=== PATIENT | female | born 1980 | race Caucasian/White ===

== ENCOUNTER 2016-09-15 20:56 | Inpatient (IN) | payer OTHER ==
[2016-09-16] MEDS ORDERED: ONDANSETRON 4 MG TAB.RAPDIS PO ONE (00:04)
--- NOTE | 2016-09-16 00:06 | ER Document Report ---
ED Medical Screen (RME) - General Chief Complaint: Vomiting Stated Complaint: VOMITING BLOOD Mode of Arrival: Ambulatory Information source: Patient Notes: Patient presents to the emergency department with reports that she is vomiting blood and having bloody stool. She reports both started today. Denies past medical history of GI bleed. Denies trauma. Reports history of renal cancer 7 years ago. She reports she was on the treadmill and had one about 1-1/2 miles when she became nauseated. After that she vomited noted blood she reports it looks like jelly. TRAVEL OUTSIDE OF THE [place] IN LAST 30 DAYS: No - Related Data Allergies/Adverse Reactions: No Known Allergies Allergy (Unverified 09/15/16 21:46) Past Medical History Renal/ Medical History: Denies: Hx Peritoneal Dialysis Physical Exam - Vital signs Vitals: Temp Pulse Resp BP Pulse Ox 99.0 F 116 H 18 128/82 H 98 09/15/16 21:46 09/15/16 21:46 09/15/16 21:46 09/15/16 21:46 09/15/16 21:46 Course - Vital Signs Vital signs: Temp Pulse Resp BP Pulse Ox 99.0 F 116 H 18 128/82 H 98 09/15/16 21:46 09/15/16 21:46 09/15/16 21:46 09/15/16 21:46 09/15/16 21:46
[2016-09-16 01:09] LABS: ABSOLUTE BASOPHILS # (AUTO) 0.1 10^3/uL (0.0-0.2); ABSOLUTE EOSINOPHILS # (AUTO) 0.1 10^3/uL (0.0-0.6); ABSOLUTE LYMPHOCYTES (AUTO) 0.9 10^3/uL (0.5-4.7); ABSOLUTE MONOCYTES (AUTO) 0.6 10^3/uL (0.1-1.4); BASOPHILS % (AUTO) 0.6 % (0-2); EOSINOPHILS % (AUTO) 0.8 % (0-6); HEMATOCRIT 32.6 % (36.0-47.0); HGB HCT DIFFERENCE 0.4; LYMPHOCYTES % (AUTO) 7.2 % (13-45); MEAN CORPUSCULAR HEMOGLOBIN 28.7 pg (27.0-33.4); MEAN CORPUSCULAR HGB CONC 33.6 g/dL (32.0-36.0); MEAN CORPUSCULAR VOLUME 85 fl (80-97); RED BLOOD COUNT 3.82 10^6/uL (3.72-5.28); RED CELL DISTRIBUTION WIDTH 14.7 % (11.5-14.0); SEGMENTED NEUTROPHILS % (AUTO) 86.4 % (42-78); WHITE BLOOD COUNT 12.7 10^3/uL (4.0-10.5)
[2016-09-16 01:21] LABS: APPEARANCE,URINE CLEAR; BILIRUBIN,URINE NEGATIVE (NEGATIVE); GLUCOSE, URINE NEGATIVE (NEGATIVE); KETONES,URINE TRACE mg/dL (NEGATIVE); LEUKOCYTE ESTERASE,URINE NEGATIVE (NEGATIVE); NITRITE,URINE NEGATIVE (NEGATIVE); PROTEIN,URINE NEGATIVE (NEGATIVE); URINE SPECIFIC GRAVITY 1.016; UROBILINOGEN,URINE NEGATIVE mg/dL (<2.0)
[2016-09-16 01:27] LABS: ALANINE AMINOTRANSFERASE 35 U/L (9-52); ALBUMIN 4.1 g/dL (3.5-5.0); ALKALINE PHOSPHATASE 101 U/L (38-126); ANION GAP 16 (5-19); ASPARTATE AMINO TRANSFERASE 35 U/L (14-36); BILIRUBIN,DIRECT 0.3 mg/dL (0.0-0.4); BILIRUBIN,TOTAL 0.6 mg/dL (0.2-1.3); BLOOD UREA NITROGEN 30 mg/dL (7-20); CALCIUM 9.1 mg/dL (8.4-10.2); CARBON DIOXIDE 21 mmol/L (22-30); CHLORIDE 103 mmol/L (98-107); CREATININE RESULT 0.71 mg/dL (0.52-1.25); GLUCOSE 108 mg/dL (75-110); POTASSIUM 4.1 mmol/L (3.6-5.0); TOTAL PROTEIN 7.4 g/dL (6.3-8.2)
--- NOTE | 2016-09-16 03:05 | ER Document Report ---
ED General - General Chief Complaint: Vomiting Stated Complaint: VOMITING BLOOD Mode of Arrival: Ambulatory Information source: Patient Notes: Patient presents today with complaints of vomiting blood. Patient reports she was running on a treadmill. She ran proximalis half. When she is running she felt nauseated. She reports she vomited and noted blood in it. She also reports she had a stool and noted blood in stool. She denies other symptoms such as fever. She also denies GI bleed. Reports she's a little bit nauseated. Denies recent trauma. Patient does report history of right renal cancer 7 years ago. Denies abdominal pain, denies pain with void, denies vaginal discharge. TRAVEL OUTSIDE OF THE [place] IN LAST 30 DAYS: No - HPI Onset: This evening Onset/Duration: Sudden Quality of pain: No pain Associated symptoms: Nausea Exacerbated by: Denies Relieved by: Denies Similar symptoms previously: No Recently seen / treated by doctor: No - Related Data Allergies/Adverse Reactions: No Known Allergies Allergy (Unverified 09/15/16 21:46) Past Medical History - General Information source: Patient Last Menstrual Period: 09/07/16 - Social History Smoking Status: Unknown if Ever Smoked Cigarette use (# per day): No Frequency of alcohol use: None Drug Abuse: None Lives with: Family Family History: Reviewed & Not Pertinent Patient has suicidal ideation: No Patient has homicidal ideation: No Renal/ Medical History: Denies: Hx Peritoneal Dialysis Malignancy Medical History: Reports: Hx Renal (Kidney) Cancer Past Surgical History: Reports: Hx Abdominal Surgery - Adhesions, Other - right nephrectomy Review of Systems - Review of Systems Notes: Review HPI for review of systems., All other systems negative Physical Exam - Vital signs Vitals: Temp Pulse Resp BP Pulse Ox 99.0 F 116 H 18 128/82 H 98 09/15/16 21:46 09/15/16 21:46 09/15/16 21:46 09/15/16 21:46 09/15/16 21:46 - Notes Notes: PHYSICAL EXAMINATION: GENERAL: Well-appearing and in no acute distress nontoxic looking HEAD: Atraumatic, normocephalic. EYES: Pupils equal round extraocular movements intact, sclera anicteric, conjunctiva are normal. ENT: nares patent, oropharynx clear without exudates. Moist mucous membranes. NECK: Normal range of motion, supple without lymphadenopathy LUNGS: CTAB and equal. No wheezes rales or rhonchi. HEART: Regular rate and rhythm without murmurs ABDOMEN: Soft, no tenderness. No guarding, no rebound denies pain BACK: Denies pain EXTREMITIES: Normal range of motion, no pitting edema. No cyanosis. NEUROLOGICAL: Cranial nerves grossly intact. Normal sensory/motor exams. PSYCH: Normal mood, normal affect. SKIN: Warm, Dry, normal turgor, no rashes or lesions noted Course - Re-evaluation Re-evalutation: 09/16/16 03:34 Patient had not vomited since arrival so I allowed her to drink some water which she immediately vomited up bright red blood approximately 250 mL. 09/16/16 04:59 I have consulted the attending provider Dr Rubi per [facility] guidelines, advised transfer if we do not have GI in the am. 09/16/16 05:14 Hospital camera control operator contacted, dr alejandre, GI is supervisor inspection in the AM. Discussed labs and plan of care with patient and her mom. They would like to stay, admit to dr turner and consult dr aguilar in the am. 09/16/16 05:19 Dr. Turner contacted. He reports admit patient to regular floor but wait until 7 :[address] Aguilar will be on. - Vital Signs Vital signs: Temp Pulse Resp BP Pulse Ox 99.0 F 99 12 122/77 99 09/16/16 05:19 09/16/16 05:19 09/16/16 07:02 09/16/16 07:02 09/16/16 07:02 - Laboratory Result Diagrams: 09/16/16 04:00 09/16/16 00:51 Laboratory results interpreted by me: 09/16/16 09/16/16 09/16/16 00:51 00:51 01:05 WBC 12.7 H Hgb 11.0 L Hct 32.6 L RDW 14.7 H Plt Count Seg Neutrophils % 86.4 H Lymphocytes % 7.2 L Absolute Neutrophils 11.0 H Carbon Dioxide 21 L BUN 30 H Urine Ketones TRACE H Urine Ascorbic Acid 40 H 09/16/16 04:00 WBC 12.1 H Hgb 10.5 L Hct 31.9 L RDW 14.6 H Plt Count 147 L Seg Neutrophils % Lymphocytes % Absolute Neutrophils Carbon Dioxide BUN Urine Ketones Urine Ascorbic Acid Discharge - Discharge Clinical Impression: Vomiting blood, Rectal bleed Disposition: ADMITTED INPATIENT Admitting Provider: Turner Unit Admitted: Medical Floor
[2016-09-16 04:24] LABS: HEMATOCRIT 31.9 % (36.0-47.0); HEMOGLOBIN 10.5 g/dL (12.0-15.5); HGB HCT DIFFERENCE -0.4; MEAN CORPUSCULAR HEMOGLOBIN 28.2 pg (27.0-33.4); MEAN CORPUSCULAR VOLUME 85 fl (80-97); RED BLOOD COUNT 3.74 10^6/uL (3.72-5.28); RED CELL DISTRIBUTION WIDTH 14.6 % (11.5-14.0); WHITE BLOOD COUNT 12.1 10^3/uL (4.0-10.5)
[2016-09-16 04:27] LABS: PROTHROMBIN TIME 13.7 SEC (11.4-15.4)
[2016-09-16] MEDS ORDERED: ONDANSETRON HCL INJ/PF 4 MG/2 ML SDV IV ONE (04:54)
[2016-09-16] MEDS ORDERED: PANTOPRAZOLE SODIUM 40 MG VIAL IV ONE (04:55)
[2016-09-16] MEDS ORDERED: PANTOPRAZOLE SODIUM 40 MG VIAL IV PRN (04:57)
[2016-09-16] MEDS ORDERED: NORMAL SALINE 1000 ML 1,000 ML IV PRN (05:18)
[2016-09-16] MEDS ORDERED: ONDANSETRON HCL INJ/PF 4 MG/2 ML SDV IV PRN (06:50)
[2016-09-16] MEDS ORDERED: SUCCINYLCHOLINE CHLORIDE INJ 200 MG/10 ML VIAL ONE (08:06)
--- NOTE | 2016-09-16 12:59 | PDOC H&P ---
History of Present Illness Admission Date/PCP: 09/16/16 06:51 KALINA TIRADO MD Patient complains of: vomiting with emesis History of Present Illness: ERON SINGLETON is a 36 year old female This is a 36-year-old female she was doing the treadmill exercise yesterday and started complaining of nausea and vomiting insist throwing up some blood and see also see a blood in the rectal area to. Patient's denied any chest pain denied any shortness of the breath denied any abdominal pain.Patient also see the [facility] for the renal cancer status post surgery and the radiations to the breast and see patient see every year and upcoming appointments in a Patients denied any [id number] any medications patient's denied any other Blood thinning medications Patients denied any history of the GI bleed in the past When I saw the patient on the floor patient is currently doing well patient last hemoglobin was 10.5 and patient does not have any further episode of the bleeding Patient's denied any symptoms in the family on the bedside Past Medical History Malignancy Medical History: Reports: Renal (Kidney) Cancer Psychiatric Medical History: Denies: Depression Past Surgical History Past Surgical History: Reports: Other - right nephrectomy Social History Lives with: Family Smoking Status: Never Smoker Frequency of Alcohol Use: Rare Hx Recreational Drug Use: No - Advance Directive Resuscitation Status: Full Code Family History Family History: Reviewed & Not Pertinent Parental Family History Reviewed: Yes Children Family History Reviewed: Yes Sibling(s) Family History Reviewed.: Yes Medication/Allergy Allergies/Adverse Reactions: No Known Allergies Allergy (Unverified 09/15/16 21:46) Review of Systems Constitutional: ABSENT: chills, fever(s), headache(s), weight gain, weight loss Eyes: ABSENT: visual disturbances Ears: ABSENT: hearing changes Cardiovascular: ABSENT: chest pain, dyspnea on exertion, edema, orthropnea, palpitations Respiratory: ABSENT: cough, hemoptysis Gastrointestinal: ABSENT: abdominal pain, constipation, diarrhea, hematemesis, hematochezia, nausea, vomiting Genitourinary: ABSENT: dysuria, hematuria Musculoskeletal: ABSENT: joint swelling Integumentary: ABSENT: rash, wounds Neurological: ABSENT: abnormal gait, abnormal speech, confusion, dizziness, focal weakness, syncope Psychiatric: ABSENT: anxiety, depression, homidical ideation, suicidal ideation Endocrine: ABSENT: cold intolerance, heat intolerance, menstrual abnormalities, polydipsia, polyuria Hematologic/Lymphatic: ABSENT: easy bleeding, easy bruising, lymphadenopathy Physical Exam Vital Signs: Temp Pulse Resp BP Pulse Ox 97.4 F 92 12 161/74 H 97 09/16/16 08:04 09/16/16 08:04 09/16/16 08:04 09/16/16 08:04 09/16/16 08:04 General appearance: PRESENT: no acute distress, well-developed, well-nourished Head exam: PRESENT: atraumatic, normocephalic Eye exam: PRESENT: conjunctiva pink, EOMI, PERRLA. ABSENT: scleral icterus Ear exam: PRESENT: normal external ear exam Mouth exam: PRESENT: moist, tongue midline Neck exam: PRESENT: full ROM. ABSENT: carotid bruit, JVD, lymphadenopathy, thyromegaly Respiratory exam: PRESENT: clear to auscultation jovon Cardiovascular exam: PRESENT: RRR. ABSENT: diastolic murmur, rubs, systolic murmur Pulses: PRESENT: normal dorsalis pedis pul, +2 pedal pulses bilateral Vascular exam: PRESENT: normal capillary refill GI/Abdominal exam: PRESENT: normal bowel sounds, soft. ABSENT: distended, guarding, mass, organolmegaly, rebound, tenderness Rectal exam: PRESENT: deferred Neurological exam: PRESENT: alert, awake, oriented to person, oriented to place , oriented to time, oriented to situation, CN II-XII grossly intact. ABSENT: motor sensory deficit Psychiatric exam: PRESENT: appropriate affect, normal mood. ABSENT: homicidal ideation, suicidal ideation Skin exam: PRESENT: dry, intact, warm. ABSENT: cyanosis, rash Assessment & Plan - Diagnosis (1) Rectal bleed Is this a current diagnosis for this admission?: YesPlan: gi consult (2) Vomiting blood Qualifiers: Nausea presence: with nausea Qualified Code(s): K92.0 - Hematemesis Is this a current diagnosis for this admission?: YesPlan: protonix drip/gi consult serial check h/h (3) Renal cancer Qualifiers: Laterality: unspecified laterality Qualified Code(s): C64.9 - Malignant neoplasm of unspecified kidney, except renal pelvis Is this a current diagnosis for this admission?: YesPlan: pt f/u kim - Time Time Spent: 50 to 70 Minutes Medications reviewed and adjusted accordingly: Yes Anticipated discharge: Home Within: Other - Inpatient Certification Medical Necessity: Need Close Monitoring Due to Risk of Patient Decompensation, Need For IV Fluids Post Hospital Care: 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 Mcmahon
[2016-09-16 13:23] LABS: HEMATOCRIT 28.2 % (36.0-47.0); HEMOGLOBIN 9.4 g/dL (12.0-15.5); MEAN CORPUSCULAR HEMOGLOBIN 28.7 pg (27.0-33.4); MEAN CORPUSCULAR HGB CONC 33.5 g/dL (32.0-36.0); MEAN CORPUSCULAR VOLUME 86 fl (80-97); RED BLOOD COUNT 3.29 10^6/uL (3.72-5.28); RED CELL DISTRIBUTION WIDTH 14.6 % (11.5-14.0); WHITE BLOOD COUNT 10.4 10^3/uL (4.0-10.5)
[2016-09-16] MEDS: NORMAL SALINE 1000 ML 1,000 ML IV PRN ×2 (14:54→18:53)
[2016-09-16] MEDS ORDERED: NALOXONE HCL INJ/PF 0.4 MG/1 ML SDV ONE (15:34)
[2016-09-16] MEDS ORDERED: PROMETHAZINE HCL INJ 25 MG/1 ML VIAL ONE (15:34)
[2016-09-16] MEDS ORDERED: FENTANYL CITRATE INJ/PF 100 MCG/2 ML AMPUL ONE (15:35)
[2016-09-16] MEDS ORDERED: GLUCAGON,HUMAN RECOMB 1 MG INJ ONE (15:35)
[2016-09-16] MEDS ORDERED: EPINEPHRINE INJ 1 MG/10 ML DISP.SYRIN ONE (15:35)
[2016-09-16] MEDS ORDERED: FLUMAZENIL INJ 0.5 MG/5 ML VIAL IV ONE (15:35)
[2016-09-16] MEDS: MIDAZOLAM 2 MG/2 ML INJ ONE ×2 (15:50→15:55)
[2016-09-16] MEDS ORDERED: PROPOFOL 100 ML IV ONE ×2 (16:39→18:39)
[2016-09-16] MEDS ORDERED: PROPOFOL INJ 200 MG/20 ML VIAL IV ONE (16:52)
[2016-09-16] MEDS ORDERED: OCTREOTIDE ACETATE INJ/PF 100 MCG/1 ML SDV IV ONE (17:00)
[2016-09-16] MEDS ORDERED: PHENYLEPHRINE HCL INJ/PF 10 MG/1 ML SDV ONE (17:18)
[2016-09-16] MEDS ORDERED: MIDAZOLAM 2 MG/2 ML INJ ONE (17:30)
[2016-09-16] MEDS ORDERED: NORMAL SALINE 250 ML IV PRN ×2 (17:44)
--- NOTE | 2016-09-16 18:08 | PROGRESS NOTE E ---
Progress Note NAME: ERON SINGLETON : 1980 AGE: 36Y DATE: 09/16/2016 ROOM: 611 SUBJECTIVE: The patient underwent for the endoscopy and the patient was found to have esophageal varices, and the patient had a gag reflex and the patient was swallowing so much blood. The patient was at that time intubated in the procedure room and brought to the intensive care unit. The patient was intubated at that point. When I came and saw the patient, the patient was intubated and Dr. Mcmahon did a further endoscopy after intubation. Dr. Do and I were present in the ICU. At this point we ligated the band on the esophageal varices and stopped the bleeding. The patient is currently doing fair. The patient is currently on a ginette drip and the patient is already receiving 2 units of blood. The patient's is also in the ICU waiting area. We discussed with the about the patient's condition also too. OBJECTIVE: VITAL SIGNS: Currently blood pressure is 102/80, pulse is 80, currently intubated. GENERAL: The patient is lying on a bed currently sedated. HEAD AND NECK: Normocephalic. PERRLA. LUNGS: No wheezing. No rales. HEART: S1 and S2 is present. ABDOMEN: Soft. Bowel sounds present. EXTREMITIES: No edema. ASSESSMENT AND PLAN: 1. ACUTE GI BLEED. 2. ESOPHAGEAL VARICES. 3. ACUTE RESPIRATORY FAILURE DUE TO THE UNCONTROLLED BLEEDING. 4. WILMS TUMOR, STATUS POST MANIFESTATION OF LUNG AND LIVER, STATUS POST CHEMORADIATION AND REMOVAL OF THE RIGHT-SIDED KIDNEY. 5. CHRONIC KIDNEY DISEASE, STATUS POST RIGHT NEPHRECTOMY. PLAN: At this point the patient is currently on the Sandostatin drip and IV fluids. We are going to check H and H. We will start the patient on IV antibiotics prophylactically in the setting of possible aspiration, blood in the lungs. Already Dr. Do, pulmonary, saw the patient in the ICU. Dr. Mcmahon already did ligation and continues to closely monitor the patient. A very extensive discussion was had with the and the mother in the ICU waiting area about the patient's clinical condition with the sickness and the seriousness, and we discussed that the patient currently needs to be stabilized first. The patient cannot be transferred at this point because the patient is unstable. The patient I hope continues to be improved. More than 1 hour was spent examining the patient with all coordinate care and discussing with the family in the ICU. DICTATING PHYSICIAN: KALINA TIRADO M.D. [id number] DEBBIEY#: [id number] ID: [id number] JOB#: [id number] ACCT: [id number] cc: >
--- NOTE | 2016-09-16 18:09 | PDOC CONSULTATION ---
Consultation Consult Date: 09/16/16 History of Present Illness Admission Date/PCP: 09/16/16 06:51 KALINA TIRADO MD History of Present Illness: This is a 36-year-old patient was admitted to the emergency room with hematemesis. She was in a normal state of health until yesterday evening while she was on the treadmill. She felt sick and had to stop. She vomited once at home and there was bright red blood. She had another smaller episode in the emergency room. Her stool has also been black. She denies any abdominal pain or history of ulcers. She does take Motrin may couple of days a week for joint pains. On admission her hemoglobin was 11 with a platelet count 158 but four hours later hemoglobin was still 10.5. INR was normal at 1.02 with normal LFTs. After my initial consultation she underwent an EGD at the endoscopy unit. She had multiple large varices in the distal esophagus with some red whales but no active bleeding initially. While in the stomach patient started to retch and bleed actively from her varices. Attempts at variceal banding were unsuccessful due to retching and difficulty sedating. She did vomit a large amount of blood with clots. She was immediately started on IV Sandostatin. I decided to transfer to the unit and have her intubated. Six rubber bands were applied at a second endoscopy. Patient has a history of right renal cancer treated about 7-8 years ago. 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 She did not have any hepatic surgery. As far as she knows she has no history of cirrhosis. Past Medical History Neurological Medical History: Denies: Seizures Malignancy Medical History: Reports: Renal (Kidney) Cancer Psychiatric Medical History: Denies: Depression Past Surgical History Past Surgical History: Reports: Other - right nephrectomy Denies: Hysterectomy Social History Lives with: Family Smoking Status: Never Smoker Frequency of Alcohol Use: Rare Hx Recreational Drug Use: No - Advance Directive Resuscitation Status: Full Code Family History Family History: Reviewed & Not Pertinent Parental Family History Reviewed: No Children Family History Reviewed: NA Sibling(s) Family History Reviewed.: NA Medication/Allergy Home Medications: Ascorbic Acid [Vitamin C 500 mg Tablet] 500 mg PO DAILY 09/16/16 Cranberry Conc/C/Bacill Coag [Cranberry Tablet] 1 each PO DAILY 09/16/16 Lisinopril [Prinivil 5 mg Tablet] 5 mg PO DAILY 09/16/16 Multivitamin [Tab-A-Odalys] 1 each PO DAILY 09/16/16 Sweet Briar-3/Dha/Epa/Fish Oil [Fish Oil 1,000 mg Softgel] 1 each PO DAILY 09/16/16 Allergies/Adverse Reactions: No Known Allergies Allergy (Unverified 09/15/16 21:46) Review of Systems All systems: reviewed and no additional remarkable complaints except as stated Physical Exam Vital Signs: Temp Pulse Resp BP Pulse Ox 98.8 F 82 14 103/52 L 100 09/16/16 16:00 09/16/16 17:20 09/16/16 17:20 09/16/16 17:20 09/16/16 17:20 Intake & Output 09/15/16 09/16/16 09/17/16 06:59 06:59 06:59 Intake Total 750 Balance 750 Exam: General: Patient is alert and looks well. HEENT: There is no pallor or jaundice. PERRLA. Oropharynx normal Respiratory: No chest deformity. No respiratory distress. Chest wall palpitation was unremarkable. Breath sounds were normal Cardiovascular: Heart sounds 1 and 2 normal with no murmurs. Abdominal: Not distended. Soft and nontender. Liver and spleen not palpable. No ascites demonstrated. Bowel sounds active. Rectal examination was deferred. Extremities: No edema Neurological: Alert and oriented x4. Grossly nonfocal. Normal speech Skin: No significant rash Psychological: Normal affect Results Laboratory Results: 09/16/16 13:08 09/16/16 13:08 WBC 10.4 RBC 3.29 L Hgb 9.4 L Hct 28.2 L MCV 86 MCH 28.7 MCHC 33.5 RDW 14.6 H Plt Count 122 L Assessment & Plan - Diagnosis (1) Esophageal varices with bleeding Is this a current diagnosis for this admission?: YesPlan: She bled from large esophageal varices which has been banded. She was started on Sandostatin right after her first endoscopy and she continues on infusion. She will require serial EGD with variceal banding for eradication. She will also be started on nadolol or propranolol once a blood pressure is more stable. She is currently on IV Protonix. Her varices may be from previous portal vein thrombosis or cirrhosis from her metastatic cancer disease or from chemoradiation. She would need further evaluation concerning this. She will be sent for hepatitis and autoimmune serology and also have a CAT scan prior to being discharged (3) Vomiting blood Qualifiers: Nausea presence: with nausea Qualified Code(s): K92.0 - Hematemesis Is this a current diagnosis for this admission?: Yes
--- NOTE | 2016-09-16 18:12 | Operative Report ---
Operative Report DATE OF SURGERY: 09/16/16 Operative Report: Pre-op diagnosis: Hematemesis Post-op diagnosis: Bleeding esophageal varices Surgery: Esophagogastroduodenoscopy Medications: Versed 4mg Fentanyl 100mcg IV push Tissue removed: None Procedure: After informed consent obtained from patient, the throat was sprayed with Hurricane and conscious sedation was achieved. The upper endoscope was inserted into the esophagus under direct vision and advanced into the stomach. The duodenum was entered and examined to the second part. Endoscope was then slowly pulled out of the patient as the mucosa was examined into details. Patient tolerated procedure well. Findings Esophagus: Multiple large varices were noted in the distal third of the esophagus with some redness suggesting recent bleeding. There was no bleeding from the varices as the endoscope was passed into the stomach but patient started bleeding after a few retching. There was large amount of bleeding. The endoscope was pulled out and the rubber band kit was loaded. The endoscope was reinserted into the esophagus but patient continued to vomit blood and was difficult to keep sedated. The procedure was then terminated Antrum: Normal Body: Normal Fundus: Normal Duodenum first part: Normal Duodenum second part: Normal Plan: Patient will be transferred to ICU, intubated and EGD with banding repeated. Sandostatin was started OPERATION: .
[2016-09-16] MEDS ORDERED: MIDAZOLAM HCL 100 ML IV ONE (18:15)
--- NOTE | 2016-09-16 18:16 | Operative Report ---
Operative Report DATE OF SURGERY: 09/16/16 - Second endoscopy on the same day Operative Report: Pre-op diagnosis: Hematemesis with history of esophageal varices. She had endoscopy earlier on today Post-op diagnosis: Large esophageal varices Surgery: Esophagogastroduodenoscopy with variceal rubberbanding Medications: Versed 2mg. patient is also on IV propofol Tissue removed: None Procedure: After informed consent obtained from patient, the throat was sprayed with Hurricane and conscious sedation was achieved. The upper endoscope was inserted into the esophagus under direct vision and advanced into the stomach. The duodenum was entered and examined to the second part. Endoscope was then slowly pulled out of the patient as the mucosa was examined into details. Patient tolerated procedure well. Findings Esophagus: One large long varix with a platelet plug. This particular varix was banded six times. There were two or three other columns of varices Antrum: Normal Body: Normal Fundus: Normal Duodenum first part: Normal Duodenum second part: Normal Plan: Continue IV Sandostatin. Repeat endoscopy in 3-4 weeks OPERATION: .
[2016-09-16 18:40] LABS: ARTERIAL BLOOD BASE EXCESS -4.2 mmol/L; ARTERIAL BLOOD O2 SATURATION 95.7 % (94-98)
[2016-09-16] MEDS: NORMAL SALINE 500 ML with OCTREOTIDE ACETATE 500 MCG IV PRN ×2 (18:54)
[2016-09-16] MEDS ORDERED: ROCURONIUM BROMIDE INJ 50 MG/5 ML VIAL IV ONE (19:40)
[2016-09-16] MEDS: CEFEPIME 1 GM/D5W RTU 1 GM/50 ML RTUPB IV SCH (19:52)
[2016-09-16] MEDS ORDERED: DEXTROSE 5%-WATER 250 ML with PHENYLEPHRINE HCL 40 MG IV PRN ×2 (19:56)
[2016-09-16 20:54] LABS: ANION GAP 12 (5-19); BLOOD UREA NITROGEN 15 mg/dL (7-20); CALCIUM 7.6 mg/dL (8.4-10.2); CARBON DIOXIDE 18 mmol/L (22-30); CHLORIDE 110 mmol/L (98-107); CREATININE RESULT 0.67 mg/dL (0.52-1.25); GLUCOSE 146 mg/dL (75-110); POTASSIUM 4.4 mmol/L (3.6-5.0); SODIUM 139.8 mmol/L (137-145)
[2016-09-16 20:57] LABS: ALANINE AMINOTRANSFERASE 32 U/L (9-52); ALKALINE PHOSPHATASE 82 U/L (38-126); ASPARTATE AMINO TRANSFERASE 31 U/L (14-36); BILIRUBIN,DIRECT 0.3 mg/dL (0.0-0.4); BILIRUBIN,TOTAL 0.7 mg/dL (0.2-1.3); TOTAL PROTEIN 5.6 g/dL (6.3-8.2)
[2016-09-16] MEDS: MIDAZOLAM HCL 100 ML IV PRN (22:15)
[2016-09-16] MEDS: CLINDAMYCIN 300 MG/D5W RTU 50 ML IV SCH (22:16)
[2016-09-17] MEDS: NORMAL SALINE 500 ML with ROCURONIUM BROMIDE 500 MG IV PRN ×4 (01:48→03:00)
[2016-09-17] MEDS: MIDAZOLAM HCL 100 ML IV PRN ×3 (01:50→15:11)
[2016-09-17 02:00] LABS: HEMATOCRIT 34.3 % (36.0-47.0); HGB HCT DIFFERENCE 1.1; MEAN CORPUSCULAR HEMOGLOBIN 29.2 pg (27.0-33.4); MEAN CORPUSCULAR HGB CONC 34.3 g/dL (32.0-36.0); MEAN CORPUSCULAR VOLUME 85 fl (80-97); RED BLOOD COUNT 4.03 10^6/uL (3.72-5.28); RED CELL DISTRIBUTION WIDTH 14.2 % (11.5-14.0); WHITE BLOOD COUNT 10.9 10^3/uL (4.0-10.5)
[2016-09-17 02:01] LABS: HEMOGLOBIN 11.8 g/dL (12.0-15.5)
--- NOTE | 2016-09-17 02:34 | OPERATIVE REPORT E ---
Operative Report NAME: ERON SINGLETON : 1980 AGE: 36Y DATE OF SURGERY: 09/16/2016 ROOM: 611 OPERATION: Attempted right internal jugular vein catheter placement under ultrasound guidance. INDICATIONS: This 36-year-old admitted for sepsis and relatively poor veins for IV access. The patient does have 2 lines at this time. SURGEON: RONAL GRIGGS M.D. DESCRIPTION OF PROCEDURE: The patient was placed in slight Trendelenburg position and the right neck prepped and draped in the usual sterile fashion. The patient is intubated and sedated. With the use of ultrasound machine, the right internal jugular vein was hen identified. Local anesthesia was then infiltrated and the right internal jugular vein punctured. The patient did have thick neck. The internal jugular vein was then punctured and easily aspirated fluid. A guidewire passed through the needle into the area of the superior vena cava. The guidewire could only be passed to about 20 to 30 cm and then there appeared to be some resistance. This was then removed and another puncture was done and again, the same problem was noted. At this point, I was planning to put it on the left side, but the nurse claims that the patient has 2 IVs at this time and likely may not need extra line. Because of this, the procedure was then terminated and we will hold off putting another central line as long as she does not need it. However, if any situation comes along that she will need a central line, then we will put a central line likely into the left internal jugular vein or even the subclavian vein puncture. DICTATING PHYSICIAN: RONAL GRIGGS M.D. [id number] Y#: [id number] ID: [id number] JOB#: [id number] ACCT: [id number] cc:RONAL GRIGGS M.D. >
[2016-09-17] MEDS: NORMAL SALINE 500 ML with OCTREOTIDE ACETATE 500 MCG IV PRN ×4 (02:59→15:10)
[2016-09-17 05:19] LABS: ARTERIAL BLOOD BASE EXCESS -4.8 mmol/L; ARTERIAL BLOOD O2 SATURATION 98.4 % (94-98)
[2016-09-17 05:46] LABS: ABSOLUTE EOSINOPHILS # (AUTO) 0.1 10^3/uL (0.0-0.6); ABSOLUTE LYMPHOCYTES (AUTO) 1.2 10^3/uL (0.5-4.7); ABSOLUTE MONOCYTES (AUTO) 0.6 10^3/uL (0.1-1.4); ABSOLUTE NEUT (AUTO) 9.9 10^3/uL (1.7-8.2); BASOPHILS % (AUTO) 0.4 % (0-2); EOSINOPHILS % (AUTO) 0.5 % (0-6); HEMATOCRIT 32.5 % (36.0-47.0); HGB HCT DIFFERENCE 0.5; LYMPHOCYTES % (AUTO) 10.5 % (13-45); MEAN CORPUSCULAR HEMOGLOBIN 28.5 pg (27.0-33.4); MEAN CORPUSCULAR HGB CONC 33.7 g/dL (32.0-36.0); MEAN CORPUSCULAR VOLUME 85 fl (80-97); MONOCYTES % (AUTO) 4.8 % (3-13); RED BLOOD COUNT 3.84 10^6/uL (3.72-5.28); RED CELL DISTRIBUTION WIDTH 14.4 % (11.5-14.0); SEGMENTED NEUTROPHILS % (AUTO) 83.8 % (42-78); WHITE BLOOD COUNT 11.8 10^3/uL (4.0-10.5)
[2016-09-17 05:52] LABS: ANION GAP 8 (5-19); BLOOD UREA NITROGEN 12 mg/dL (7-20); CALCIUM 7.2 mg/dL (8.4-10.2); CARBON DIOXIDE 19 mmol/L (22-30); CHLORIDE 112 mmol/L (98-107); CREATININE RESULT 0.61 mg/dL (0.52-1.25); GLUCOSE 122 mg/dL (75-110); POTASSIUM 4.6 mmol/L (3.6-5.0); SODIUM 139.3 mmol/L (137-145); TRIGLYCERIDES 105 mg/dL (<150)
[2016-09-17] MEDS: CLINDAMYCIN 300 MG/D5W RTU 50 ML IV SCH ×2 (06:10→14:06)
[2016-09-17] MEDS: CEFEPIME 1 GM/D5W RTU 1 GM/50 ML RTUPB IV SCH (06:46)
--- NOTE | 2016-09-17 08:30 | PDOC CONSULTATION ---
Consultation Consult Date: 09/16/16 Attending physician:: KALINA TIRADO Consult reason:: res arrest History of Present Illness Admission Date/PCP: 09/16/16 06:51 KALINA TIRADO MD History of Present Illness: ERON SINGLETON is a 36 year old female This is a 36-year-old female she was doing the treadmill exercise yesterday and started complaining of nausea and vomiting insist throwing up some blood and see also see a blood in the rectal area to. Patient's denied any chest pain denied any shortness of the breath denied any abdominal pain.Patient also see the [facility] for the renal cancer status post surgery and the radiations to the breast and see patient see every year and upcoming appointments in a Patients denied any [id number] any medications patient's denied any other Blood thinning medications Patients denied any history of the GI bleed in the past When I saw the patient on the floor patient is currently doing well patient last hemoglobin was 10.5 and patient does not have any further episode of the bleeding Patient's denied any symptoms in the family on the bedside Past Medical History Neurological Medical History: Denies: Seizures Malignancy Medical History: Reports: Renal (Kidney) Cancer Psychiatric Medical History: Denies: Depression Past Surgical History Past Surgical History: Reports: Other - right nephrectomy Denies: Hysterectomy Social History Lives with: Family Smoking Status: Never Smoker Frequency of Alcohol Use: Rare Hx Recreational Drug Use: No - Advance Directive Resuscitation Status: Full Code Family History Family History: Reviewed & Not Pertinent Parental Family History Reviewed: No Children Family History Reviewed: No Sibling(s) Family History Reviewed.: No Medication/Allergy Home Medications: Ascorbic Acid [Vitamin C 500 mg Tablet] 500 mg PO DAILY 09/16/16 Cranberry Conc/C/Bacill Coag [Cranberry Tablet] 1 each PO DAILY 09/16/16 Lisinopril [Prinivil 5 mg Tablet] 5 mg PO DAILY 09/16/16 Multivitamin [Tab-A-Odalys] 1 each PO DAILY 09/16/16 [place]-3/Dha/Epa/Fish Oil [Fish Oil 1,000 mg Softgel] 1 each PO DAILY 09/16/16 Allergies/Adverse Reactions: No Known Allergies Allergy (Unverified 09/15/16 21:46) Review of Systems ROS unobtainable: Due to endotracheal tube Physical Exam Vital Signs: Temp Pulse Resp BP Pulse Ox 98.8 F 113 H 19 119/70 99 09/16/16 16:00 09/16/16 16:15 09/16/16 16:15 09/16/16 16:15 09/16/16 16:15 Intake & Output 09/15/16 09/16/16 09/17/16 06:59 06:59 06:59 Intake Total 750 Balance 750 General appearance: PRESENT: no acute distress, disheveled, obese Head exam: PRESENT: atraumatic, normocephalic Eye exam: PRESENT: conjunctiva pale Mouth exam: PRESENT: other - ET tube Respiratory exam: PRESENT: decreased breath sounds, prolonged expiratory phas, rhonchi, symmetrical, unlabored Cardiovascular exam: PRESENT: RRR, +S1, +S2 Pulses: PRESENT: normal radial pulses GI/Abdominal exam: PRESENT: normal bowel sounds, soft. ABSENT: distended, guarding, mass, organolmegaly, rebound, tenderness Rectal exam: PRESENT: deferred Gentrourinary exam: PRESENT: indwelling catheter Musculoskeletal exam: PRESENT: normal inspection Skin exam: PRESENT: dry, warm Results Laboratory Results: 09/16/16 13:08 09/16/16 13:08 WBC 10.4 RBC 3.29 L Hgb 9.4 L Hct 28.2 L MCV 86 MCH 28.7 MCHC 33.5 RDW 14.6 H Plt Count 122 L Assessment & Plan - Diagnosis (1) Aspiration into airway Is this a current diagnosis for this admission?: Yes (2) Acute GI hemorrhage Is this a current diagnosis for this admission?: Yes (3) Esophageal varices with bleeding Is this a current diagnosis for this admission?: Yes - Time Critical Time spent with patient: 35 or more minutes - 70 min
[2016-09-17] MEDS ORDERED: NORMAL SALINE 1000 ML 1,000 ML IV PRN (08:41)
[2016-09-17] MEDS: PROPOFOL 100 ML IV PRN ×3 (09:31→16:27)
[2016-09-17] MEDS ORDERED: PROPRANOLOL HCL 20 MG TABLET PO SCH (10:00)
[2016-09-17 10:01] LABS: ARTERIAL BLOOD BASE EXCESS -6.9 mmol/L; ARTERIAL BLOOD O2 SATURATION 97.5 % (94-98)
[2016-09-17] MEDS ORDERED: SUCCINYLCHOLINE CHLORIDE INJ 200 MG/10 ML VIAL ONE (11:04)
--- NOTE | 2016-09-17 11:24 | PROGRESS NOTE E ---
Progress Note NAME: ERON SINGLETON : 1980 AGE: 36Y DATE: 09/17/2016 ROOM: 611 SUBJECTIVE: The patient was apparently doing fair overnight; was extubated this morning, and suddenly the nursing staff noticed patient's pupils were constricted and the eyeballs were rolled over, and patient's O2 saturation had gone up to 40% and patient was intubated again. OBJECTIVE: GENERAL: Patient is currently intubated and currently under sedation. VITAL SIGNS: The patient's blood pressure was 125/76, pulse of 103, respiration was 16, 30% FIO2 right now. Patient is lying in her bed. No actual bleeding. HEAD AND NECK: Normocephalic. PERRL. LUNGS: No wheezing. No rales. HEART: S1 and S2 is present. ABDOMEN: Soft. Bowel sounds present. EXTREMITIES: No edema. ASSESSMENT AND PLAN: 1. ACUTE RESPIRATORY DISTRESS STATUS POST EXTUBATION. 2. ACUTE GASTROINTESTINAL BLEEDING FROM THE ESOPHAGEAL VARICES. 3. 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 PLAN: At this point, we will get the CT of the head and the CT of the abdomen and pelvis. I discussed with Dr. Do about the *------* Dr. Mcmahon. We had extensive discussions with the family about the patient's clinical condition which is critical. I will make a phone call to [facility] *------* has an ongoing problem with [facility]. Will hope the patient continues to stabilize and improved. More than 45 minutes spent in the ICU with acute care; and coordinate care, too. DICTATING PHYSICIAN: KALINA TIRADO M.D. [id number] PHY#: [id number] ID: [id number] JOB#: [id number] ACCT: [id number] cc: >
[2016-09-17 11:59] LABS: ANION GAP 6 (5-19); BLOOD UREA NITROGEN 10 mg/dL (7-20); CARBON DIOXIDE 20 mmol/L (22-30); CHLORIDE 112 mmol/L (98-107); CREATININE RESULT 0.64 mg/dL (0.52-1.25); GLUCOSE 128 mg/dL (75-110); POTASSIUM 4.4 mmol/L (3.6-5.0); SODIUM 137.9 mmol/L (137-145)
[2016-09-17] MEDS ORDERED: SUCRALFATE SUSP 1 GM/10 ML UDCUP PO SCH (12:00)
--- NOTE | 2016-09-17 12:17 | PDOC TRANSFER SUMMARY ---
General Admission Date/PCP: 09/16/16 06:51 KALINA TIRADO MD Transfer Date: 09/17/16 Accepting Facility: [facility] Resuscitation Status: Full Code - Transfer Diagnosis (1) Rectal bleed Is this a current diagnosis for this admission?: YesDiagnosis Summary: From esophageal varices (2) Vomiting blood Is this a current diagnosis for this admission?: YesDiagnosis Summary: From esophageal varices (3) Renal cancer Is this a current diagnosis for this admission?: YesDiagnosis Summary: The Wilms tumors with a right-sided nephrectomy - Transfer Medications Home Medications: Ascorbic Acid [Vitamin C 500 mg Tablet] 500 mg PO DAILY 09/16/16 Cranberry Conc/C/Bacill Coag [Cranberry Tablet] 1 each PO DAILY 09/16/16 Lisinopril [Prinivil 5 mg Tablet] 5 mg PO DAILY 09/16/16 Multivitamin [Tab-A-Odalys] 1 each PO DAILY 09/16/16 Jean-3/Dha/Epa/Fish Oil [Fish Oil 1,000 mg Softgel] 1 each PO DAILY 09/16/16 Transfer Medications: Current Medications Octreotide Acetate 500 mcg/ (Sodium Chloride) 500 mls @ 0 mls/hr IV CONTINUOUS PRN; Protocol PRN Reason: THIS MED IS NOT "PRN" Stop: 10/16/16 16:38 Last Admin: 09/17/16 02:59 Dose: 500 mcg Cefepime HCl (Maxipime Rtu 1 Gm/D5w 50 Ml Premix Bag) 1 gm in 50 mls @ 100 mls/ hr IV Q12@0700,1900 [facility] Stop: 09/23/16 18:59 Last Admin: 09/17/16 06:46 Dose: 50 ml Clindamycin Phosphate/Dextrose (Cleocin Rtu 300 Mg/D5w 50 Ml Premix) 50 mls @ 50 mls/hr IV Q8 [facility] Stop: 09/23/16 21:59 Last Admin: 09/17/16 06:10 Dose: 50 ml Sodium Chloride (Nacl 0.9% 250 Ml Iv Soln) 250 mls @ 30 mls/hr IV .DURING TRANSFUSION PRN PRN Reason: THIS MED IS NOT "PRN" Stop: 09/17/16 17:43 Sodium Chloride (Nacl 0.9% 250 Ml Iv Soln) 250 mls @ 0 mls/hr IV CONTINUOUS PRN ; As Directed PRN Reason: AFTER EACH UNIT Stop: 09/17/16 17:43 Rocuronium [place] 500 mg/ (Sodium Chloride) 500 mls @ 0 mls/hr IV CONTINUOUS PRN; Protocol; Titrate PRN Reason: THIS MED IS NOT "PRN" Stop: 10/16/16 18:32 Last Admin: 09/17/16 03:00 Dose: 500 mg Midazolam HCl (Versed Rtu 50 Mg/100 Ml Premix Bag) 100 mls @ 0 mls/hr IV CONTINUOUS PRN; Protocol; Titrate PRN Reason: THIS MED IS NOT "PRN" Stop: 09/23/16 18:32 Last Admin: 09/17/16 09:31 Dose: 100 ml Hard Fat/Phenylephrine 40 mg/ (Dextrose) 250 mls @ 0 mls/hr IV CONTINUOUS PRN; Protocol; Titrate PRN Reason: THIS MED IS NOT "PRN" Stop: 10/16/16 19:55 Propofol (Diprivan Rtu 1000 Mg/100 Ml Inf.Bottle) 100 mls @ 0 mls/hr IV CONTINUOUS PRN; Protocol; Titrate PRN Reason: THIS MED IS NOT "PRN" Stop: 10/16/16 20:49 Last Admin: 09/17/16 09:31 Dose: 100 ml Sodium Chloride (Nacl 0.9% 1000 Ml Iv Soln) 1,000 mls @ 75 mls/hr IV CONTINUOUS PRN PRN Reason: THIS MED IS NOT "PRN" Stop: 10/16/16 06:49 Last Admin: 09/17/16 09:32 Dose: 1,000 ml Ondansetron HCl (Zofran Inj/Pf 4 Mg/2 Ml Sdv) 4 mg IV Q4HP PRN PRN Reason: FOR NAUSEA/VOMITING Stop: 10/16/16 06:49 Pantoprazole Sodium (Protonix Iv Inj 40 Mg Vial) 80 mg IV .CONTINUOUS (IVBAG) PRN PRN Reason: THIS MED IS NOT "PRN" Stop: 09/19/16 04:56 Last Admin: 09/16/16 05:12 Dose: 80 mg Propranolol HCl (Inderal 20 Mg Tablet) 20 mg PO Q12 [facility] Stop: 10/17/16 09:59 Sucralfate (Carafate Susp 1 Gm/10 Ml Udcup) 1 gm PO Q6 [facility] Stop: 10/17/16 11:59 - Allergies Allergies/Adverse Reactions: No Known Allergies Allergy (Unverified 09/15/16 21:46) Hospital Course Hospital Course: This is a 36-year-old female came to the emergency department with the complaint before vomiting with the blood in the blood in the rectal area started after suitable start doing some treadmill exercise. 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 Initially patient hemoglobin is 11 and patient was put in the medical floor and keep her n.p.o. and IV Protonix drip in patients was consulted to the Dr. Lisandro Mcmahon started the endoscopy and the patient was pouring the blood from the esophageal varices and patient was aspirated and was intubated and put in the intensive care unit where the patient underwent for the further endoscopy and the ligate the blood vessels and the bleeding will stop. Dr. Do the pulmonary was consulted and patient was put in a IV Versed and other medications per the protocol. Patient was put on IV antibiotic for possible aspirations pneumonia. Patient was doing fair received the 4 units of the blood and the patient's was extubated this morning and after extubated the nurses noticed 10 minutes the patient's eyeball was rolling and the patient's seizures like activity and patient's O2 sat was dropped up to 40 persons and patient was reintubated again Patient at this point pulmonary doctor Hi was also there and discussed with the family with ongoing problems with the possible underlying renal cancer and the possible portal hypertension's and possible underlying liver disorders patient was transported to the [facility] for further evaluations. Patient's otherwise remained stable currently patient was CT of the head was negative for any acute finding and patient also CT abdomen and pelvis was done and there was some inflammatory changes in the right side of the kidney with the surgery was done but other than that no other acute finding was found Discussed with the family including the and the mother and very extensive coordinate care with the valuation manager and also the local physicians was taking care of the patient's and all agree and patient is currently hemodynamically stable to transfer Physical Exam Vital Signs: Temp Pulse Resp BP Pulse Ox 98.8 F 92 12 122/78 99 09/17/16 10:00 09/17/16 10:00 09/17/16 10:00 09/17/16 11:37 09/17/16 11:37 Intake & Output 09/16/16 09/17/16 09/18/16 06:59 06:59 06:59 Intake Total 5169 Output Total 1020 375 Balance 4149 -375 Weight 94.6 kg General appearance: PRESENT: no acute distress Exam: Currently currently intubated under sedation's Head exam: PRESENT: normocephalic Eye exam: PRESENT: PERRLA Respiratory exam: PRESENT: clear to auscultation jovon Cardiovascular exam: PRESENT: +S1, +S2 GI/Abdominal exam: PRESENT: normal bowel sounds, soft Results Laboratory Results: 09/17/16 05:15 09/17/16 11:30 09/16/16 09/16/16 09/16/16 13:08 18:30 20:12 WBC 10.4 RBC 3.29 L Hgb 9.4 L Hct 28.2 L MCV 86 MCH 28.7 MCHC 33.5 RDW 14.6 H Plt Count 122 L Seg Neutrophils % Lymphocytes % Monocytes % Eosinophils % Basophils % Absolute Neutrophils Absolute Lymphocytes Absolute Monocytes Absolute Eosinophils Absolute Basophils Carbonic Acid 0.95 L HCO3/H2CO3 Ratio 20:1 ABG pH 7.41 ABG pCO2 31.4 L ABG pO2 77.3 L ABG HCO3 19.5 L ABG O2 Saturation 95.7 ABG Base Excess -4.2 FiO2 30% Sodium Potassium Chloride Carbon Dioxide Anion Gap BUN Creatinine Est GFR ( Amer) Est GFR (Non-Af Amer) Glucose Calcium Total Bilirubin 0.7 AST 31 ALT 32 Alkaline Phosphatase 82 Total Protein 5.6 L Albumin 3.0 L Triglycerides 09/16/16 09/17/16 09/17/16 20:12 01:36 04:50 WBC 10.9 H RBC 4.03 Hgb 11.8 L D Hct 34.3 L MCV 85 MCH 29.2 MCHC 34.3 RDW 14.2 H Plt Count 107 L Seg Neutrophils % Lymphocytes % Monocytes % Eosinophils % Basophils % Absolute Neutrophils Absolute Lymphocytes Absolute Monocytes Absolute Eosinophils Absolute Basophils Carbonic Acid 0.88 L HCO3/H2CO3 Ratio 21:1 ABG pH 7.42 ABG pCO2 29.3 L ABG pO2 116.2 H ABG HCO3 18.5 L ABG O2 Saturation 98.4 H ABG Base Excess -4.8 FiO2 30% Sodium 139.8 Potassium 4.4 Chloride 110 H Carbon Dioxide 18 L Anion Gap 12 BUN 15 Creatinine 0.67 Est GFR ( Amer) > 60 Est GFR (Non-Af Amer) > 60 Glucose 146 H Calcium 7.6 L Total Bilirubin AST ALT Alkaline Phosphatase Total Protein Albumin Triglycerides 09/17/16 09/17/16 09/17/16 05:15 05:15 09:50 WBC 11.8 H RBC 3.84 Hgb 11.0 L Hct 32.5 L MCV 85 MCH 28.5 MCHC 33.7 RDW 14.4 H Plt Count 99 L Seg Neutrophils % 83.8 H Lymphocytes % 10.5 L Monocytes % 4.8 Eosinophils % 0.5 Basophils % 0.4 Absolute Neutrophils 9.9 H Absolute Lymphocytes 1.2 Absolute Monocytes 0.6 Absolute Eosinophils 0.1 Absolute Basophils 0.0 Carbonic Acid 1.10 HCO3/H2CO3 Ratio 16:1 ABG pH 7.32 L ABG pCO2 36.7 ABG pO2 106.3 H ABG HCO3 18.5 L ABG O2 Saturation 97.5 ABG Base Excess -6.9 FiO2 40% Sodium 139.3 Potassium 4.6 Chloride 112 H Carbon Dioxide 19 L Anion Gap 8 BUN 12 Creatinine 0.61 Est GFR ( Amer) > 60 Est GFR (Non-Af Amer) > 60 Glucose 122 H Calcium 7.2 L Total Bilirubin AST ALT Alkaline Phosphatase Total Protein Albumin Triglycerides 105 09/17/16 11:30 WBC RBC Hgb Hct MCV MCH MCHC RDW Plt Count Seg Neutrophils % Lymphocytes % Monocytes % Eosinophils % Basophils % Absolute Neutrophils Absolute Lymphocytes Absolute Monocytes Absolute Eosinophils Absolute Basophils Carbonic Acid HCO3/H2CO3 Ratio ABG pH ABG pCO2 ABG pO2 ABG HCO3 ABG O2 Saturation ABG Base Excess FiO2 Sodium 137.9 Potassium 4.4 Chloride 112 H Carbon Dioxide 20 L Anion Gap 6 BUN 10 Creatinine 0.64 Est GFR ( Amer) > 60 Est GFR (Non-Af Amer) > 60 Glucose 128 H Calcium 7.0 L* Total Bilirubin AST ALT Alkaline Phosphatase Total Protein Albumin Triglycerides Impressions: Abdomen/Pelvis CT 09/17/16 00:00 IMPRESSION: Inflammatory changes in the right perirenal space and in the anterior pararenal space of uncertain clinical significance status post right nephrectomy. Findings are nonspecific, and could be inflammatory, infectious or neoplastic. I am provided no further history as to when the nephrectomy was performed. No obvious abscess. Chest X-Ray 09/17/16 00:00 IMPRESSION: Minimal left basilar atelectasis. Endotracheal tube tip 2 cm above the blank Head CT 09/17/16 00:00 IMPRESSION: NORMAL BRAIN CT WITHOUT CONTRAST. Plan Time Spent: Greater than 30 Minutes - Discussed with the patient and family very extensively and agreeable to transfer and discuss about the other coordinate care and more than 1-1/2 hour spent
--- NOTE | 2016-09-17 13:04 | PDOC PROGRESS REPORT ---
Subjective Progress Note for:: 09/17/16 Subjective:: intubated and sedated Physical Exam Vital Signs: Temp Pulse Resp BP Pulse Ox 98.6 F 107 H 16 126/81 H 100 09/17/16 08:01 09/17/16 08:01 09/17/16 08:01 09/17/16 08:01 09/17/16 08:01 Intake & Output 09/16/16 09/17/16 09/18/16 06:59 06:59 06:59 Intake Total 5169 Output Total 1020 175 Balance 4149 -175 Weight 94.6 kg General appearance: PRESENT: no acute distress, well-developed, well-nourished Head exam: PRESENT: atraumatic, normocephalic Eye exam: PRESENT: conjunctiva pale Mouth exam: PRESENT: moist, other - ET tube Neck exam: ABSENT: carotid bruit, JVD, lymphadenopathy, thyromegaly Respiratory exam: PRESENT: clear to auscultation jovon Cardiovascular exam: PRESENT: RRR, +S1, +S2 Pulses: PRESENT: normal radial pulses GI/Abdominal exam: PRESENT: normal bowel sounds, soft. ABSENT: distended, guarding, mass, organolmegaly, rebound, tenderness Rectal exam: PRESENT: deferred Gentrourinary exam: PRESENT: indwelling catheter Musculoskeletal exam: PRESENT: normal inspection Skin exam: PRESENT: dry, warm Results Laboratory Results: 09/17/16 05:15 09/17/16 05:15 09/16/16 09/16/16 09/16/16 13:08 18:30 20:12 WBC 10.4 RBC 3.29 L Hgb 9.4 L Hct 28.2 L MCV 86 MCH 28.7 MCHC 33.5 RDW 14.6 H Plt Count 122 L Seg Neutrophils % Lymphocytes % Monocytes % Eosinophils % Basophils % Absolute Neutrophils Absolute Lymphocytes Absolute Monocytes Absolute Eosinophils Absolute Basophils Carbonic Acid 0.95 L HCO3/H2CO3 Ratio 20:1 ABG pH 7.41 ABG pCO2 31.4 L ABG pO2 77.3 L ABG HCO3 19.5 L ABG O2 Saturation 95.7 ABG Base Excess -4.2 FiO2 30% Sodium Potassium Chloride Carbon Dioxide Anion Gap BUN Creatinine Est GFR ( Amer) Est GFR (Non-Af Amer) Glucose Calcium Total Bilirubin 0.7 AST 31 ALT 32 Alkaline Phosphatase 82 Total Protein 5.6 L Albumin 3.0 L Triglycerides 09/16/16 09/17/16 09/17/16 20:12 01:36 04:50 WBC 10.9 H RBC 4.03 Hgb 11.8 L D Hct 34.3 L MCV 85 MCH 29.2 MCHC 34.3 RDW 14.2 H Plt Count 107 L Seg Neutrophils % Lymphocytes % Monocytes % Eosinophils % Basophils % Absolute Neutrophils Absolute Lymphocytes Absolute Monocytes Absolute Eosinophils Absolute Basophils Carbonic Acid 0.88 L HCO3/H2CO3 Ratio 21:1 ABG pH 7.42 ABG pCO2 29.3 L ABG pO2 116.2 H ABG HCO3 18.5 L ABG O2 Saturation 98.4 H ABG Base Excess -4.8 FiO2 30% Sodium 139.8 Potassium 4.4 Chloride 110 H Carbon Dioxide 18 L Anion Gap 12 BUN 15 Creatinine 0.67 Est GFR ( Amer) > 60 Est GFR (Non-Af Amer) > 60 Glucose 146 H Calcium 7.6 L Total Bilirubin AST ALT Alkaline Phosphatase Total Protein Albumin Triglycerides 09/17/16 09/17/16 05:15 05:15 WBC 11.8 H RBC 3.84 Hgb 11.0 L Hct 32.5 L MCV 85 MCH 28.5 MCHC 33.7 RDW 14.4 H Plt Count 99 L Seg Neutrophils % 83.8 H Lymphocytes % 10.5 L Monocytes % 4.8 Eosinophils % 0.5 Basophils % 0.4 Absolute Neutrophils 9.9 H Absolute Lymphocytes 1.2 Absolute Monocytes 0.6 Absolute Eosinophils 0.1 Absolute Basophils 0.0 Carbonic Acid HCO3/H2CO3 Ratio ABG pH ABG pCO2 ABG pO2 ABG HCO3 ABG O2 Saturation ABG Base Excess FiO2 Sodium 139.3 Potassium 4.6 Chloride 112 H Carbon Dioxide 19 L Anion Gap 8 BUN 12 Creatinine 0.61 Est GFR ( Amer) > 60 Est GFR (Non-Af Amer) > 60 Glucose 122 H Calcium 7.2 L Total Bilirubin AST ALT Alkaline Phosphatase Total Protein Albumin Triglycerides 105 Impressions: Chest X-Ray 09/17/16 00:00 IMPRESSION: Left basilar pneumonia stable. SUPPORT DEVICE(S) IN EXPECTED LOCATIONS. Assessment & Plan - Diagnosis (1) Aspiration into airway Is this a current diagnosis for this admission?: YesPlan: radiograph unchanged ;RR;FIO2;Min Vol; airway pressures suggest sucessful extubation (2) Acute GI hemorrhage Is this a current diagnosis for this admission?: YesPlan: stable (3) Esophageal varices with bleeding Is this a current diagnosis for this admission?: Yes - Time Critical Time spent with patient: 35 or more minutes - 65 min (extubation---> seizure--->intubation) - Plan Summary Plan Summary: patient extubated within 30 min generalized seizure activity noted self limited ;patient reintubated for transfer
[2016-09-17] MEDS ORDERED: CALCIUM GLUCONATE 1000 MG/10 ML INJ IV ONE (13:45)
[2016-09-17 16:33] VITALS: BP 120/76
== END 2016-09-17 16:45 | disposition short-term general hospital (02) | DRG 368 ==
LOC: ER 20:56 → UNDOADMIN 09-16 06:43 → EH 09-16 06:43 → 4S 09-16 07:47 → ICU 09-16 16:30
PROVIDERS: ADMIT Family Medicine; ATTEND Family Medicine
PROC: 06L34CZ Occlusion of Esophageal Vein with Extraluminal Device, Percutaneous Endoscopic Approach (ICD-10-PCS; 2016-09-16)
PROC: 0DJ08ZZ Inspection of Upper Intestinal Tract, Via Natural or Artificial Opening Endoscopic (ICD-10-PCS; 2016-09-16)
PROC: 0BH17EZ Insertion of Endotracheal Airway into Trachea, Via Natural or Artificial Opening (ICD-10-PCS; 2016-09-16)
PROC: 5A1935Z Respiratory Ventilation, Less than 24 Consecutive Hours (ICD-10-PCS; 2016-09-16)
PROC: 05JYXZZ Inspection of Upper Vein, External Approach (ICD-10-PCS; principal; 2016-09-16 17:00)
DX: I85.01 Esophageal varices with bleeding (principal); J96.00 Acute respiratory failure, unspecified whether with hypoxia or hypercapnia; C64.9 Malignant neoplasm of unspecified kidney, except renal pelvis; C79.81 Secondary malignant neoplasm of breast; C78.00 Secondary malignant neoplasm of unspecified lung; C78.7 Secondary malignant neoplasm of liver and intrahepatic bile duct; R56.9 Unspecified convulsions; K92.0 Hematemesis; N18.9 Chronic kidney disease, unspecified; Z79.899 Other long term (current) drug therapy; Z90.5 Acquired absence of kidney
CPT/HCPCS: 31500; 36415; 36430; 43244; 70450; 71010; 74176; 80048; 80053; 80074; 80076; 81001; 82271; 82272; 82803; 84478; 84703; 85025; 85027; 85610; 86038; 86235; 86256; 86850; 86900; 86901; 86920; 94002; 94003; 96374; 96375; 99285; C1751; J0171; J0330; J0610; J0692; J1610; J2250; J2310; J2354; J2370; J2405; J2550; J2704; J3010; J3490; J7030; J7040; P9016; S0119; S0164

== ENCOUNTER → 2017-03-30 | Outpatient (CLI) | payer OTHER ==
--- NOTE | 2017-03-30 16:24 | XCELERA REPORT ---
[address] [address] Upper Extremity Venous Evaluation Name: ERON SINGLETON Age: 36 yrs Gender: Female : 1980 Patient Status: Outpatient Patient Location: Study Date: 03/30/2017 09:00 AM Procedure: Unilateral duplex scan of the right upper extremity veins was performed, including responses to compression and other maneuvers. Reason For Study: CHRONIC DVT RUE Ordering Physician: JOAQUINA NORRIS Performed By: Hailey Stephen Right Side Venous Evaluation Normal vessel filling wall to wall, compression and augmentation as well as Colour flow down to the forearm veins. Interpretation Summary Normal compression, patency, spontaneous and phasic flow of the right upper extremity veins. : JOAQUINA NORRIS > Michael Tracy
== END ==
LOC: SP 08:50
PROVIDERS: ATTEND Physician Assistant
DX: I82.721 Chronic embolism and thrombosis of deep veins of right upper extremity (principal)
CPT/HCPCS: 93971

== ENCOUNTER → 2017-11-18 | Outpatient (CLI) | payer OTHER ==
--- NOTE | 2017-11-18 18:02 | RADIOLOGY REPORT (SQ) ---
EXAM DESCRIPTION: HIP RIGHT AP/LATERAL COMPLETED DATE/TIME: 11/18/2017 5:55 pm REASON FOR STUDY: PAIN IN RIGHT HIP M25.551 PAIN IN RIGHT HIP COMPARISON: None. NUMBER OF VIEWS: Two views. TECHNIQUE: AP pelvis and additional frog-leg view of the right hip. LIMITATIONS: None. FINDINGS: MINERALIZATION: Normal. RIGHT HIP: No fracture or dislocation. No worrisome bone lesions. LEFT HIP: No fracture or dislocation. No worrisome bone lesions. PUBIS AND ISCHIUM: No fracture. PELVIS: No fracture. SACRUM: No fracture or dislocation. No worrisome bone lesions. LOWER LUMBAR SPINE: No fracture or dislocation. No worrisome bone lesions. No significant disc disea se. SOFT TISSUES: No findings. OTHER: No other significant finding. IMPRESSION: NEGATIVE STUDY OF THE RIGHT HIP. NO RADIOGRAPHIC EVIDENCE OF ACUTE INJURY. TECHNICAL DOCUMENTATION: JOB ID: [id number] [employer]- All Rights Reserved Reading location - IP/workstation name: [email or web address]
== END ==
LOC: OD 17:20
PROVIDERS: ATTEND Physician Assistant
DX: M25.551 Pain in right hip (principal)